=== PATIENT | female | born 1945 | race Caucasian/White ===

== ENCOUNTER → 2019-03-04 | Outpatient (CLI) | payer OTHER ==
[~2019-03-04] MED LIST: CALCIUM PO; FISH OIL 1,0001 EAC5 PO; FLAXSEED OIL1000 MG PO; LUTEIN6 MG PO; MAGNESIUM PO; MULTI-VITAMIN1 EAC5; SUPER B COMPLE1 EAC2
== END ==
LOC: RAD 16:36
DX: S12.390D Other displaced fracture of fourth cervical vertebra, subsequent encounter for fracture with routine healing (principal); M47.892 Other spondylosis, cervical region; M50.31 Other cervical disc degeneration, high cervical region; X58.XXXD Exposure to other specified factors, subsequent encounter

== ENCOUNTER → 2019-10-14 | Outpatient (CLI) | payer OTHER | LOC: NUC 07:22 | DX: Z13.6 Encounter for screening for cardiovascular disorders (principal); M81.0 Age-related osteoporosis without current pathological fracture; M85.88 Other specified disorders of bone density and structure, other site; E78.00 Pure hypercholesterolemia, unspecified; I25.10 Atherosclerotic heart disease of native coronary artery without angina pectoris; E28.39 Other primary ovarian failure ==

== ENCOUNTER → 2021-02-15 | Outpatient (CLI) | payer OTHER | LOC: ULTRA 10:20 | PROVIDERS: ATTEND Family Medicine | DX: R22.1 Localized swelling, mass and lump, neck (principal) ==